=== PATIENT | female | born 2000 | race Caucasian/White ===

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

== ENCOUNTER 2021-03-21 18:15 | Emergency (ER) | payer OTHER, SELFPAY ==
[2021-03-21 18:22] VITALS: BP 103/61; PULSE 98; RESP 14; TEMP 36.4; O2SAT 100
--- NOTE | 2021-03-21 18:38 | ED.NAVMDI ---
HPI - Nausea/Vomiting/Diarrhea General Chief complaint: Nausea/Vomiting/Diarrhea Stated complaint: Vomiting/Dizzy/Pass Out Time Seen by Provider: 03/21/21 18:39 Source: patient and RN notes reviewed Mode of arrival: ambulatory Limitations: no limitations History of Present Illness HPI Narrative: 21-year-old female presents concern for episode of passing out this morning at work around 10 AM. Afterwards reports 2 episodes of vomiting several hours apart. Reports she checked her blood sugar after she passed out and it was 92. Reports for the rest of the day she has had a mild frontal headache and dizziness . She describes the dizziness as slight blurry vision. Denies any thunderclap headache, trouble swallowing, weakness in any extremity, abdominal pain, diarrhea, body aches, fever. Reports mild rhinorrhea. Denies sore throat, cough. MD elicited complaint: vomiting Related Data Home Medications Medication Instructions Recorded Confirmed cyclobenzaprine 5 mg PO HS 12/23/20 03/21/21 medroxyprogesterone 150 mg IM [id number] 12/23/20 03/21/21 Allergies Allergy/AdvReac Type Severity Reaction Status Date / Time No Known Allergies Allergy Verified 03/21/21 18:31 Review of Systems Review of Systems: CONSTITUTIONAL: Denies malaise, chills, sweats, or fever. EYES: Denies visual changes, redness, or discharge. ENT: Reports rhinorrhea. Denies congestion, sinus pain, otalgia or sore throat. CARDIOVASCULAR: Denies chest pain, palpitations, or edema. RESPIRATORY: Denies cough or dyspnea. GASTROINTESTINAL: Denies abdominal pain, nausea, diarrhea. There is reports 2 episodes of vomiting today. MUSCULOSKELETAL: Denies back pain, joint pain, or myalgia. NEUROLOGIC: Denies numbness, weakness. Reports mild headache. Reports feeling of dizziness All systems reviewed & are unremarkable except as noted in HPI and below PMFSH Family History Family History Other No acute medical problems Social History Social History (Updated 11/02/20 @ 17:18 by Tami Lima CNP) Smoking status: Never smoker Alcohol intake: never Gender identity (if verbalized by the patient): Female Comments At time of signature, agree with nursing past medical, surgical, social and family history. There is no relevant family history pertinent to the presenting complaint Exam Narrative: GENERAL: Well-appearing, well-nourished, and in no acute distress. HEAD: Normocephalic, atraumatic. EYES: PERRLA, sclera clear, and EOMI. No nystagmus. ENT: Nares clear. Mucous membranes moist. TM pearly levy with sharp light reflex bilaterally; no tragal tenderness. Oropharynx without erythema or lesions. Tonsils not enlarged and without exudate. NECK: Supple. No lymphadenopathy. No jugular venous distension, thyromegaly, or carotid bruits. Carotids were easily palpable bilaterally. CHEST: No respiratory distress. Clear to auscultation. No bony deformities, no asymmetry. Speaks in full sentences. HEART: Regular rate and rhythm. No murmur heard. Normal peripheral pulses. ABDOMEN: Soft, nontender, nondistended, normal active bowel sounds, no palpable masses. EXTREMITIES: Normal range of motion. No edema. Normal strength and sensation. SKIN: Warm, dry, no visible rash. NEURO: Alert and oriented x3. No focal deficits. Cranial nerves II through XII grossly intact PSYCH: Normal mood and affect Course Course Emergency Course: Patient is aware of diagnosis, understands and agrees to treatment plan. Anticipatory guidance given. Patient agrees to follow-up as directed and is aware of reasons to seek care at the emergency department. Portions of this record may have been created with voice recognition software Vital Signs Vital signs: Vital Signs Temperature 97.6 F 03/21/21 18:22 Pulse Rate 98 03/21/21 18:22 Respiratory Rate 14 03/21/21 18:22 Blood Pressure 103/61 03/21/21 18:22 Pulse Oximetry 100
== END 2021-03-21 19:09 | disposition home or self-care (01) ==
PROVIDERS: Emergency Provider Nurse Practitioner; PCP Nurse Practitioner Family
DX: R11.10 Vomiting, unspecified (principal); Z20.822 Contact with and (suspected) exposure to COVID-19
CPT/HCPCS: 87426; 99213; C9803; G0463

== ENCOUNTER 2021-04-30 11:48 | Emergency (ER) | payer OTHER, SELFPAY ==
[2021-04-30 12:45] VITALS: BP 116/71; PULSE 73; RESP 16; TEMP 36.9; O2SAT 100
--- NOTE | 2021-04-30 13:25 | ED.URI ---
HPI - URI/Sore Throat General Chief Complaint: Upper Respiratory Infection Stated Complaint: Sore Throat/Nausea Time Seen by Provider: 04/30/21 13:25 Source: patient, RN notes reviewed and old records reviewed Mode of arrival: ambulatory Limitations: no limitations History of Present Illness HPI Narrative: 21-year-old female presents to the [facility] with complaints of sore throat, headache, cough, body aches for the last 2 days. Denies any past medical or surgical history. Has only taken ibuprofen for her symptoms. Does not appear acutely ill MD elicited complaint: sore throat and nasal congestion Related Data Home Medications Medication Instructions Recorded Confirmed cyclobenzaprine 5 mg PO HS 12/23/20 03/21/21 medroxyprogesterone 150 mg IM [id number] 12/23/20 03/21/21 Allergies Allergy/AdvReac Type Severity Reaction Status Date / Time No Known Allergies Allergy Verified 03/21/21 18:31 Review of Systems Review of Systems: All systems reviewed & are unremarkable except as noted in HPI and below Constitutional: Constitutional: Reports as per HPI, Denies chills, Reports fatigue and Denies fever(s) Eyes: Eyes: Reports no additional eye complaints ENT: Reports as per HPI and Reports sore throat Cardiovascular: Cardiovascular: Reports no additional cardiovascular complaints and Denies chest pain Respiratory: Respiratory: Reports as per HPI and Reports cough Gastrointestinal: Gastrointestinal: Reports no additional gastrointestinal complaints, Denies abdominal pain, Denies nausea and Denies vomiting Musculoskeletal: Musculoskeletal: Reports as per HPI and Reports myalgias Integumentary/Breasts: Skin/Breast: Reports system reviewed and no additional complaints, except as docu Neurologic: Reports as per HPI and Reports headache(s) Psychiatric: Psychiatric: Reports no additional psychiatric complaints Allergic/Immunologic: Allergic/Immunologic: Reports no additional allergic/immunologic complaints [facility] Past Medical History Medical History (Updated 05/01/21 @ 00:00 by Charlotte Coulter) No pertinent past medical history Surgical History Surgical History (Updated 04/30/21 @ 13:35 by Deepika Yost) No pertinent past surgical history Family History Family History Other No acute medical problems Social History Social History (Updated 11/02/20 @ 17:18 by Tami Lima CNP) Smoking status: Never smoker Alcohol intake: never Gender identity (if verbalized by the patient): Female Comments At the time of my signature, I reviewed and agree with the nursing past medical, surgical, social, and family history. There is no relevant family history pertinent to the patient complaint. Exam Const: General: healthy appearing, no acute distress and alert Nutritional Appearance: well nourished Orientation/consciousness: patient oriented x3 Limitations: no limitations HENMT: Head: normal to inspection Ears: external ears normal, TM's normal bilaterally and EAC's normal Mouth: Yes Normal oral and palatal mucosa present Throat: posterior oropharynx normal, tonsils normal and uvula midline Eyes: Conjunctivae: conjunctivae normal Pupils: Equal, round and reactive pupils present Neck: Neck: normal visual inspection, no lymphadenopathy and no meningeal signs Chest: Chest palpation & inspection: normal inspection of the chest Resp: Effort & Inspection: normal respiratory effort and no use of accessory muscles Auscultation: clear to auscultation bilaterally, no rales and no wheezes Cardio: Rate: regular rate Rhythm: regular rhythm GI: GI Palp: Yes Soft to palpation and No Tenderness to palpation present (GI) Back/Spine/Pelvis: Back: no CVA tenderness Skin: General skin exam: normal color Rashes: no rashes Neuro: General: patient oriented x3, moves all extremities, no meningeal signs and no focal motor deficits Speech: normal speech
[2021-05-01 14:36] LABS: SARS-CoV-2 RNA PCR Positive
== END 2021-04-30 13:40 | disposition home or self-care (01) ==
PROVIDERS: Emergency Provider Nurse Practitioner; PCP Nurse Practitioner Family
DX: U07.1 COVID-19 (principal)
CPT/HCPCS: 99211; C9803; G0463; U0003; U0005

== ENCOUNTER 2021-12-06 14:45 | Emergency (ER) | payer OTHER, SELFPAY ==
[2021-12-06 14:48] VITALS: BP 120/48; PULSE 120; RESP 14; TEMP 36.8; O2SAT 100
--- NOTE | 2021-12-06 15:37 | ED.GENADULT ---
HPI - General Adult General Chief complaint: Ear Stated complaint: Right Ear Pain Source: patient Mode of arrival: ambulatory Limitations: no limitations History of Present Illness HPI narrative: Patient presents for evaluation of right ear pain for the last 2 weeks. She states that she has TMJ and thought that this caused an ear infection. She states she was seen at her PCP's office five days ago and was given a combo abx/steroid otic preparation which she has used as directed. She states her symptoms have not improved. She denies drainage from the ear and tinnitus. She states she cannot hear out of that ear. No additional complaints or concerns. Related Data Home Medications Medication Instructions Recorded Confirmed cyclobenzaprine 5 mg tablet 5 mg PO HS 12/23/20 12/06/21 Allergies Allergy/AdvReac Type Severity Reaction Status Date / Time No Known Allergies Allergy Verified 12/06/21 15:01 Review of Systems Review of Systems: CONSTITUTIONAL: Denies fever, chills, or sweats. EYES: Denies visual changes, redness, or discharge. ENT: Reports right sided ear pain and decreased hearing in right ear. Denies rhinorrhea, congestion, sore throat CARDIOVASCULAR: Denies chest pain, palpitations, or edema. RESPIRATORY: Denies cough or dyspnea. GASTROINTESTINAL: Denies abdominal pain, nausea, vomiting, or diarrhea. GENITOURINARY: Denies dysuria or hematuria. SKIN: Denies rash or itching. MUSCULOSKELETAL: Denies back pain, joint pain, or myalgia. NEUROLOGIC: Denies headache, numbness, dizziness, or weakness. PSYCHIATRIC: Denies anxiety or depression. [facility] Past Medical History Medical History (Updated 12/06/21 @ 15:42 by JEANNETTE Tejeda, ) TMJ (temporomandibular joint syndrome) Surgical History Surgical History No pertinent past surgical history Family History Family History Other No acute medical problems Social History Social History Smoking status: Current every day smoker Tobacco type: e-cigarettes/vaping Alcohol intake: never Substance use: current Substance use type: marijuana Additional living arrangements comments: Lives with significant other Gender identity (if verbalized by the patient): Female Exam Narrative: GENERAL: Well-appearing, well-nourished, and in no acute distress. HEAD: Normocephalic, atraumatic. EYES: PERRLA and EOMI. ENT: Nares clear, no rhinorrhea or epistaxis. Mucous membranes moist. Oropharynx without tonsillar hypertrophy exudate or other lesions. There is a small amount of thick yellow drainage in right ear canal. There is a thick yellow drainage behind right TM NECK: Supple. No adenopathy or masses. No carotid bruits or JVD CHEST: Clear to auscultation. No respiratory distress. No wheezes rales or rhonchi HEART: Regular rate and rhythm. No murmur heard. Normal peripheral pulses. ABDOMEN: Soft, nontender, nondistended, normal active bowel sounds. EXTREMITIES: Normal range of motion. No edema. SKIN: Warm, dry, no rash. NEURO: No focal deficits. Alert and oriented x3. PSYCH: Normal mood and affect. Course Course Emergency Course: This is a 21-year-old female that presented for evaluation of right-sided ear pain. She was recently treated for otitis externa. She currently has evidence of otitis media. We will add Augmentin. Follow-up outpatient for further evaluation and treatment. Return for worsening symptoms. Pt in agreement with plan of care. Level of Care: Express Care Visit Vital Signs Vital signs: Vital Signs Temperature 36.8 C 12/06/21 14:48 Pulse Rate 120 H 12/06/21 14:48 Respiratory Rate 14 12/06/21 14:48 Blood Pressure 120/48 L 12/06/21 14:48 Pulse Oximetry 100 12/06/21 14:48 Oxygen Delivery Room Air 12/06/21 14:48 Temperature 36
== END 2021-12-06 15:40 | disposition home or self-care (01) ==
PROVIDERS: Emergency Provider Nurse Practitioner; PCP Nurse Practitioner Family
DX: H66.91 Otitis media, unspecified, right ear (principal); F17.290 Nicotine dependence, other tobacco product, uncomplicated
CPT/HCPCS: 99213; G0463

== ENCOUNTER 2021-12-19 10:14 | Emergency (ER) | payer OTHER, SELFPAY ==
[2021-12-19 10:25] VITALS: BP 114/71; PULSE 112; RESP 20; TEMP 36.8; O2SAT 100
--- NOTE | 2021-12-19 10:34 | ED.URI ---
HPI - URI/Sore Throat General Chief Complaint: Upper Respiratory Infection Stated Complaint: Chest Congestion/Cough Time Seen by Provider: 12/19/21 10:34 Source: patient, RN notes reviewed and old records reviewed Mode of arrival: ambulatory Limitations: no limitations History of Present Illness HPI Narrative: 21-year-old female presents to the [facility] with cough for 1 day. States when she is coughing that her chest is sore. Was seen 2 weeks ago and diagnosed with a right ear infection, states that her ear still feels full. No treatment prior to arrival. Reports that her son was sick 2 days ago. Patient also requesting a work note Related Data Home Medications Medication Instructions Recorded Confirmed cyclobenzaprine 5 mg tablet 5 mg PO HS 12/23/20 12/06/21 Allergies Allergy/AdvReac Type Severity Reaction Status Date / Time No Known Allergies Allergy Verified 12/06/21 15:01 Review of Systems Review of Systems: All systems reviewed & are unremarkable except as noted in HPI and below Constitutional: Constitutional: Reports no additional constitutional complaints, Denies chills and Denies fever(s) Eyes: Eyes: Reports no additional eye complaints ENT: Reports as per HPI Cardiovascular: Cardiovascular: Reports no additional cardiovascular complaints Respiratory: Respiratory: Reports as per HPI, Reports chest congestion and Reports cough Gastrointestinal: Gastrointestinal: Reports no additional gastrointestinal complaints Musculoskeletal: Musculoskeletal: Reports no additional musculoskeletal complaints Integumentary/Breasts: Skin/Breast: Reports system reviewed and no additional complaints, except as docu Neurologic: Reports system reviewed and no additional complaints, except as documented Psychiatric: Psychiatric: Reports no additional psychiatric complaints Allergic/Immunologic: Allergic/Immunologic: Reports no additional allergic/immunologic complaints [facility] Past Medical History Medical History TMJ (temporomandibular joint syndrome) Surgical History Surgical History No pertinent past surgical history Family History Family History Other No acute medical problems Social History Social History Smoking status: Current every day smoker Tobacco type: e-cigarettes/vaping Alcohol intake: never Substance use: current Substance use type: marijuana Additional living arrangements comments: Lives with significant other Gender identity (if verbalized by the patient): Female Comments At the time of my signature, I reviewed and agree with the nursing past medical, surgical, social, and family history. There is no relevant family history pertinent to the patient complaint. Exam Const: General: healthy appearing, no acute distress and alert Nutritional Appearance: well nourished Orientation/consciousness: patient oriented x3 Limitations: no limitations HENMT: Head: normal to inspection Ears: external ears normal, EAC's normal and TM abnormal with fluid behind the TM on the right; not on the left; not erythematous, not perforated and not retracted General nose exam: Normal external nose present and Normal nares present Face and sinus: normal facial exam Throat: posterior oropharynx normal and uvula midline Eyes: General: appearance normal, both eyes and all related structures Pupils: Equal, round and reactive pupils present Neck: Neck: normal visual inspection, no lymphadenopathy and no meningeal signs Chest: Chest palpation & inspection: normal inspection of the chest and tenderness (Right intercostal spaces) Resp: Effort & Inspection: normal respiratory effort and no use of accessory muscles Auscultation: clear to auscultation bilaterally, no crackles, no rales,
== END 2021-12-19 11:10 | disposition home or self-care (01) ==
PROVIDERS: Emergency Provider Nurse Practitioner; PCP Nurse Practitioner Family
DX: M94.0 Chondrocostal junction syndrome [Tietze] (principal); H65.01 Acute serous otitis media, right ear; F17.290 Nicotine dependence, other tobacco product, uncomplicated
CPT/HCPCS: 99213; G0463

== ENCOUNTER 2022-03-24 11:23 | Emergency (ER) | payer OTHER, SELFPAY ==
[2022-03-24 12:36] VITALS: BP 108/71; PULSE 95; RESP 16; TEMP 36.6; O2SAT 100
--- NOTE | 2022-03-24 13:53 | ED.URI ---
HPI - URI/Sore Throat General Chief Complaint: Nausea/Vomiting/Diarrhea Stated Complaint: Low Back Pain/Vomiging Time Seen by Provider: 03/24/22 13:50 Source: patient and RN notes reviewed Mode of arrival: ambulatory Limitations: no limitations History of Present Illness HPI Narrative: 22-year-old female presents for multiple complaints. Reports 2 day history of cough, back pain, chills, sweats, general malaise. Reports she did not have any direct trauma to her back. She denies sick contacts. She denies dysuria, frequency, urgency. MD elicited complaint: cough and other (Chills, sweats, flank pain) Related Data Home Medications Medication Instructions Recorded Confirmed cyclobenzaprine 5 mg tablet 5 mg PO HS 12/23/20 12/06/21 Allergies Allergy/AdvReac Type Severity Reaction Status Date / Time No Known Allergies Allergy Verified 12/06/21 15:01 Review of Systems Review of Systems: CONSTITUTIONAL: Reports malaise, chills, sweats EYES: Denies visual changes, redness, or discharge. ENT: Reports rhinorrhea, congestion. Denies sinus pain, otalgia and sore throat. CARDIOVASCULAR: Denies chest pain, palpitations, or edema. RESPIRATORY: Reports cough. Denies dyspnea. GASTROINTESTINAL: Denies abdominal pain, nausea, vomiting, diarrhea SKIN: Denies rash or itching. MUSCULOSKELETAL: Reports myalgia. Reports bilateral back pain NEUROLOGIC: Denies headache. All systems reviewed & are unremarkable except as noted in HPI and below PMFSH Past Medical History Medical History TMJ (temporomandibular joint syndrome) Surgical History Surgical History No pertinent past surgical history Family History Family History Other No acute medical problems Social History Social History Smoking status: Current every day smoker Tobacco type: e-cigarettes/vaping Alcohol intake: never Substance use: current Substance use type: marijuana Additional living arrangements comments: Lives with significant other Gender identity (if verbalized by the patient): Female Comments At time of signature, agree with nursing past medical, surgical, social and family history. There is no relevant family history pertinent to the presenting complaint Exam Narrative: GENERAL: Well-appearing, well-nourished, and in no acute distress. HEAD: Normocephalic EYES: PERRLA, conjunctivae clear ENT: Nares clear, clear discharge. Mucous membranes moist. TM pearly levy with sharp light reflex bilaterally; no tragal tenderness. Oropharynx not erythematous without lesions. Tonsils not enlarged and without exudate, no drooling, no hoarseness, no trismus, uvula midline. NECK: Supple. No lymphadenopathy CHEST: Clear to auscultation, breath sounds equal. No wheezing, rhonchi, rales, or stridor. No respiratory distress, speaks in full sentences. HEART: Regular rate and rhythm. No murmur heard. ABD: Bowel sounds active in all 4 quadrants, no tenderness. CVA tenderness bilaterally SKIN: Warm, dry, no rash. NEURO: Alert and oriented x3. PSYCH: Normal mood and affect Course Course Emergency Course: Patient is aware of diagnosis, understands and agrees to treatment plan. Anticipatory guidance given. Patient agrees to follow-up as directed and is aware of reasons to seek care at the emergency department. Portions of this record may have been created with voice recognition software Level of Care: Express Care Visit Vital Signs Vital signs: Vital Signs Temperature 97.9 F 03/24/22 12:36 Pulse Rate 95 03/24/22 12:36 Respiratory Rate 16 03/24/22 12:36 Blood Pressure 108/71 03/24/22 12:36 Pulse Oximetry 100 03/24/22 12:36 Oxygen Delivery Room Air 03/24/22 12:36 Temperature 97.9 F 03/24/22 12:36 Pulse Rate 95
== END 2022-03-24 14:41 | disposition home or self-care (01) ==
PROVIDERS: Emergency Provider Nurse Practitioner; PCP Nurse Practitioner Family
DX: J11.1 Influenza due to unidentified influenza virus with other respiratory manifestations (principal); F17.290 Nicotine dependence, other tobacco product, uncomplicated
CPT/HCPCS: 81003; 87086; 87088; 87147; 99213; G0463

== ENCOUNTER 2022-12-07 10:45 | Emergency (ER) | payer BC, SELFPAY ==
[2022-12-07 10:54] VITALS: BP 113/71; PULSE 105; RESP 20; TEMP 36.8; O2SAT 100
--- NOTE | 2022-12-07 11:13 | ED.ABDPAIN ---
HPI - Abdominal Pain General Chief Complaint: Abdominal Pain Stated Complaint: Ovary pain History of Present Illness HPI narrative: Pt is a 22 y/o female, , 4 year old at home, presents to with bilateral suprapubic pressure that began two days ago. Today she notices some pressure when she urinates as well in the bilateral suprapubic region. She denies associated pelvic pain, dyspareunia or post coital bleeding. 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 She has not had a BM since taking the medication. She denies associated fevers, reports clear vaginal discharge that is not malodorous or abnormal in appearance and she denies new sexual partners or STI concerns. She did stop her OCP last month after feeling the medication was causing her to have abnormal menstrual periods. she called her OBGYN today but was unable to obtain an appointment, prompting her visit here. She has taken APAP and applied a heating pad without much relief. She denies any other associated symptoms or modifying factors. Related Data Home Medications Medication Instructions Recorded Confirmed cyclobenzaprine 5 mg tablet 5 mg PO HS 12/23/20 12/06/21 Allergies Allergy/AdvReac Type Severity Reaction Status Date / Time No Known Allergies Allergy Verified 12/06/21 15:01 Review of Systems Constitutional: Comments: refer to HPI Gastrointestinal: Comments: refer to HPI Genitourinary: Comments: refer to HPI [facility] Past Medical History Medical History TMJ (temporomandibular joint syndrome) Surgical History Surgical History No pertinent past surgical history Family History Family History Other No acute medical problems Social History Social History Smoking status: Current every day smoker Tobacco type: e-cigarettes/vaping Alcohol intake: never Substance use: current Substance use type: marijuana Additional living arrangements comments: Lives with significant other Gender identity (if verbalized by the patient): Female Exam Const: General: cooperative, healthy appearing, comfortable, no acute distress, well developed, alert, awake and Physically active Nutritional Appearance: average body habitus Orientation/consciousness: oriented to person Limitations: no limitations HENMT: Head: normal to inspection Ears: hearing grossly normal bilaterally Mouth: Yes Normal oral and palatal mucosa present Throat: posterior oropharynx normal Eyes: General: appearance normal, both eyes and all related structures Visual Layne: normal visual layne by confrontation Conjunctivae: conjunctivae normal Sclera: sclerae normal EOM: EOMs intact bilaterally Neck: Neck: normal visual inspection, full ROM, no lymphadenopathy and no meningeal signs Lymphatic: no lymphadenopathy noted Chest: Chest palpation & inspection: normal inspection of the chest Resp: Effort & Inspection: normal respiratory effort and able to speak in complete sentences Auscultation: clear to auscultation bilaterally Cardio: Palpation: normal PMI Rate: regular rate (rate is 98 at PMI) Rhythm: regular rhythm Heart sounds: S1 normal heart sound present and S2 normal heart sound present GI: Inspection: normal to inspection GI Palp: No abdominal tenderness, No Abdominal aortic bruit present, No Soft to palpation, No Firmness to palpation present (GI), No Tenderness to palpation present (GI), No Guarding due to palpation present (GI), No Rigid due to palpation, No No hepatosplenomegaly present, No Hepatosplenomegaly present, No Hep
== END 2022-12-07 11:31 | disposition home or self-care (01) ==
PROVIDERS: Emergency Provider Nurse Practitioner Family; PCP Nurse Practitioner Family
DX: R10.2 Pelvic and perineal pain (principal); K59.09 Other constipation; F17.290 Nicotine dependence, other tobacco product, uncomplicated
CPT/HCPCS: 81003; 81025; 99212; G0463

== ENCOUNTER 2023-01-31 10:00 | Emergency (ER) | payer BC, MEDICAID, SELFPAY ==
[2023-01-31 10:19] VITALS: BP 123/69; PULSE 106; RESP 20; TEMP 36.6; O2SAT 97
--- NOTE | 2023-01-31 10:41 | ED.GENADULT ---
HPI - General Adult General Chief complaint: Skin/Abscess/Foreign Body Stated complaint: left hand middle finger infection Source: patient Mode of arrival: ambulatory Limitations: no limitations History of Present Illness HPI narrative: Patient presents for evaluation of redness to the skin surrounding the nail plate of the 3rd digit of the left hand. Symptom onset one week ago. She has a history of paronychia in the past. She is not diabetic. She does use electronic cigarette. No fever, chills, nausea, vomiting, drainage from the affected digit. She is currently , 9 weeks gestation, with confirmed IUP per ultrasound during this . Related Data Home Medications Medication Instructions Recorded Confirmed Women's Stool Softener 01/31/23 ondansetron 4 mg disintegrating mg 01/31/23 tablet [id number] 1 mg tablet PO 01/31/23 tablet Allergies Allergy/AdvReac Type Severity Reaction Status Date / Time No Known Allergies Allergy Verified 01/31/23 10:17 Review of Systems Review of Systems: CONSTITUTIONAL: Denies fever, chills, or sweats. EYES: Denies visual changes, redness, or discharge. ENT: Denies rhinorrhea, congestion, sore throat, or otalgia. CARDIOVASCULAR: Denies chest pain, palpitations, or edema. RESPIRATORY: Denies cough or dyspnea. GASTROINTESTINAL: Denies abdominal pain, nausea, vomiting, or diarrhea. GENITOURINARY: Denies dysuria or hematuria. SKIN: Reports redness to skin surrounding nailplate of third digit of left hand MUSCULOSKELETAL: Reports pain in the 3rd digit of the left hand. Denies back pain NEUROLOGIC: Denies headache, numbness, dizziness, or weakness. PSYCHIATRIC: Denies anxiety or depression. [facility] Past Medical History Medical History TMJ (temporomandibular joint syndrome) Surgical History Surgical History No pertinent past surgical history Family History Family History Other No acute medical problems Social History Social History Smoking status: Current every day smoker Tobacco type: e-cigarettes/vaping Alcohol intake: never Substance use: current Substance use type: marijuana Additional living arrangements comments: Lives with significant other Gender identity (if verbalized by the patient): Female Exam Narrative: GENERAL: Well-appearing, well-nourished, and in no acute distress. HEAD: Normocephalic, atraumatic. EYES: PERRLA and EOMI. ENT: Nares clear, no rhinorrhea or epistaxis. Mucous membranes moist. Oropharynx without tonsillar hypertrophy exudate or other lesions. Bilateral TMs pearly levy nonbulging NECK: Supple. No adenopathy or masses. No carotid bruits or JVD CHEST: Clear to auscultation. No respiratory distress. No wheezes rales or rhonchi HEART: Regular rate and rhythm. No murmur heard. Normal peripheral pulses. ABDOMEN: Soft, nontender, nondistended, normal active bowel sounds. EXTREMITIES: Trace swelling noted to the distal phalanx of the 3rd digit of the left hand surrounding the nail plate. There is tenderness to the distal phalanx of 3rd digit left hand. normal range of motion. SKIN: There is redness surrounding the nail plate of the 3rd digit of the left hand. NEURO: No focal deficits. Alert and oriented x3. PSYCH: Normal mood and affect. Course Course Emergency Course: This is a 23-year-old female who presented for evaluation of redness and swelling to the skin surrounding the nail plate of the 3rd digit left hand. Exam is consistent with paronychia. There does not appear to be drainable fluid collection on exam. In terms of clinical management, I recommended she use warm soaks. Will avoid antibiotics as she is currently and majority of anti
== END 2023-01-31 10:43 | disposition home or self-care (01) ==
PROVIDERS: Emergency Provider Nurse Practitioner; PCP Nurse Practitioner Family
DX: O26.891 Other specified pregnancy related conditions, first trimester (principal); L03.012 Cellulitis of left finger; O99.331 Smoking (tobacco) complicating pregnancy, first trimester; F17.219 Nicotine dependence, cigarettes, with unspecified nicotine-induced disorders; Z3A.09 9 weeks gestation of pregnancy; Z79.899 Other long term (current) drug therapy
CPT/HCPCS: 99211; G0463

== ENCOUNTER 2024-12-22 19:19 | Emergency (ER) | payer OTHER, SELFPAY ==
[2024-12-22 19:23] VITALS: BP 134/78; PULSE 83; RESP 16; TEMP 36.6; O2SAT 100
--- OUTSIDE RECORDS SUMMARY | 2024-12-22 19:23 | XMS_ITS | Encounter Summary ---
Author Organization [facility] Healthcare Address [address] [place] [address] Care Team Providers Care Ton Container Shipper Name Role Phone Cathie Bo CREDIT RELATIONSHIP MANAGER Primary Care Provider [phone] No, Physician Primary Care Provider [phone] Cathie Bo CREDIT RELATIONSHIP MANAGER Primary Care Provider [phone] No, Physician Primary Care Provider [phone] No, Physician Primary Care Provider [phone] Tami Saha CREDIT RELATIONSHIP MANAGER Primary Care Provider [phone] Encounter Details Date Type Department Care Team (Late st Contact Info) Description 06/04/2017 [facility] Only [facility] [address] [place] [phone] Jing Barnhart, ROHAN [address] [place] [phone] Social History Tobacco Use Types Packs/Day Years Used Date Smoking Tobacco: Never Smokeless Tobacco: Never Comments Unknown Sex and Gender Information Value Date Recorded Sex Assigned at Not on file Legal Sex Female 10:39 AM TOUR CONSULTANT Gender Identity Female 03/12/2024 8:00 AM TOUR CONSULTANT Sexual Orientation Asexual 03/12/2024 8: 00 AM TOUR CONSULTANT documented as of this encounter Plan of Treatment Upcoming Encounters Date Type Department Care Team (Latest Contact Info) Description 02/09/2025 10:55 AM CDT Hospital Encounter [facility] [place] [facility] [address] [facility] [place] [phone] Trell Carrera MD [address] [facility] DEPT OTOLARYNGOLOGY, [address] [address] 02/09/2025 10:55 AM CDT - 02/09/2025 12:25 PM CDT Surgery [facility] [place] [facility] [address] [facility] [place] [phone] Trell Carrera MD [address], [facility] [address] [place] [address] TYMPANOPLASTY WITH RECONSTRUCTION OSSICULAR CHAIN. Scheduled Procedures Name Priority Associated Diagnoses Date/Ti me TYMPANOPLASTY WITH RECONSTRUCTION OSSICULAR CHAIN. Conductive hearing loss of right ear with unrestricted hearing of left ear 02/09/2025 10:55 AM CDT documented as of this encounter Visit Diagnoses Not on filedocumented in this encounter Care Teams Ton Container Shipper Relationship Specialty Start Date End Date Cathie Bo NP PCP - General 08/04/16 03/19/19 No, Physician PCP - General 03/20/19 08/29/19 Cathie Bo NP PCP - General Family Medicine 08/30/19 09/07/19 No, Physician PCP - General 09/08/19 10/29/19 No, Physician PCP - General 10/30/19 04/02/21 Tami Saha NP [address] [place] [address] PCP - General 04/03/21 documented as of this encounter
--- OUTSIDE RECORDS SUMMARY | 2024-12-22 19:23 | XMS_ITS | Clinical Summary ---
Author Organization [facility] [employer] Address [address] [address] Care Team Providers Care Database Security Administrator Name Role Phone Unavailable Primary Care Provider Unavailabl e Source Comments [facility] [employer]non-owned Affiliates and Associated Physician Practices is amultiple site organization consisting of ambulatory clinics and hospital sitesin [place], [place], [place] and [place]. This disclosure is being madepursuant to the Care Everywhere program and may not contain all information available regarding this patient. Last updated 18.[facility] [employer] Active Problems Problem Noted Date Diagnosed Date Poor growth affecting management of mother, antepartum 08/01/2019 Rh negative state in antepartum period 0 Social History Tobacco Use Types Packs/Day Years Used Date Smoking Tobacco: Never Assessed Comments No Sex and Gender Information Value Date Recorded Sex Assigned at Not on file Legal Sex Female 11:13 AM CDT Gender Identity Not on file Sexual Orientation Not on file Last Filed Vital Signs Vital Sign Reading Time Taken Comments Blood Pressure - - Pulse - - Temperature 36.6 C (97.9 F) 08/04/2019 8:17 AM CDT Respiratory Rate - - Oxygen Saturation - - Inhaled Oxygen Concentration - - Weight - - Height - - Body Mass Index - - Plan of Treatment Health Maintenance Due Date Last Done Comments HIV SCREENING 01/08/2016 HPV VACCINE (1 - 3-dose series) 01/08/2016 CHLAMYDIA/GONORRHEA SCREENING 2017 MENINGOCOCCAL (Group B) VACCINE SHARED DECISION-MAKING (1 of 2 - Standard) 2017 HEPATITIS C SCREENING 01/03/2019 DTAP/TDAP/TD VACCINES (1 - Tdap) 01/08/2020 HEPATITIS B VACCINE (1 of 3 - 19+ 3-dose series) 01/08/2020 PAP SMEAR 2022 COVID-19 VACCINE ( season) 2023 DEPRESSION SCREENING 04/26/2024 INFLUENZA VACCINE (#1) 2024 9, 01/23/2014, 02/01/2013, Additional history exists ZOSTER VACCINE (1 of 2) 2051 HIB VACCINE Aged Out No longer eligi ble based on patient's age to complete this topic MENINGOCOCCAL GROUPS A/C/Y/W VACCINE Aged Out No longer eligible based on patient's age to complete this topic PNEUMOCOCCAL VACCINE Aged Out No long er eligible based on patient's age to complete this topic Insurance [facility]
--- OUTSIDE RECORDS SUMMARY | 2024-12-22 19:23 | XMS_ITS | Encounter Summary ---
Author Organization [facility] Address [address] [place] [address] Phone Care Team Providers Care Direct Marketing Intern Name Role Phone Tami Saha NP Primary Care Provider [phone] Encounter Details Date Type Department Care Team (Late st Contact Info) Description 12/22/2024 Orders Only [facility] Otolaryngology [address], [address] [place] [address] Inna Herrera CMA Social History Tobacco Use Types Packs/Day Years Used Date Smoking Tobacco: Every Day Vaping Started: 2015 Smokeless Tobacco: Never Comments:Pt currently vaping nicotine with flavoring and quit vaping THC on 07/26/2024 Alcohol Use Standard Drinks/Week Comments Not Currently 0 (1 standard drink = 0.6 oz pur e alcohol) [facility] Utilities Answer Date Recorded In the past 12 months has e electric, gas, oil, or water [employer] threatened to shut off services in your home? No 08/26/2023 Humiliation, Afraid, Rape, and Kick questionnair e Answer Date Recorded Within the last year, have y ou been afraid of your partner or ex-partner? No 08/26/2023 Within the last year, have y ou been humiliated or emotionally abused in other ways by your partner or ex-partner? No Within the last year, have y ou been kicked, hit, slapped, or otherwise physically hurt by your partner or ex-partner? No 08/26/2023 Within the last year, have y ou been raped or forced to have any kind of sexual activity by your partner or ex-partner? No 08/26/2023 Social Connection and Isolation Panel Answer Date Recorded In a typical week, how many times do you talk on the phone with family, friends, or neighbors? More than three times a week 08/26/2023 How often do you get togethe r with friends or relatives? More than three times a week 08/26/2023 How often do you attend chur or restorationism services? Never 08/26/2023 Do you belong to any clubs o r organizations such as jehovah's witness groups, unions, fraternal or athletic groups, or school groups? No 08/26/2023 How often do you attend meet ings of the clubs or organizations you belong to? Never 08/26/2023 Are you , , di vorced, , never , or living with a partner? Living with partner 08/26/2023 AUDIT-C Answer Date Recorded Q1: How often do you have a drink containing alcohol? Never 08/11/2024 Q2: How many drinks containi ng alcohol do you have on a typical day when you are drinking? Patient does not drink Q3: How often do you have si x or more drinks on one occasion? Never 08/11/2024 Overall Financial Resource Strain (CARDIA) Answe r Date Recorded How hard is it for you to pa y for the very basics like food, housing, medical care, and heating? Not hard at all 08/26/2023 PHQ-2 Answer Date Recorded PHQ-2 Total Score 0 08/26/2023 [facility] - Occupational Stress Questionnaire Answer Date Recorded Do you feel stress - tense, restless, nervous, or anxious, or unable to sleep at night because your mind is troubled all the time - these days? Not at all 08/26/2023 Exercise Vital Sign Answer Date Recorde d On average, how many days pe r week do you engage in moderate to strenuous exercise (like a brisk walk)? 7 days 08/26/2023 On average, how many minutes do you engage in exercise at this level? 30 min 08/26/2023 Hunger Vital Sign Answer Date Recorded Within the past 12 months, y ou worried that your food would run out before you got the money to buy more. Never true 08/26/19 24 Within the past 12 months, t he food you bought just didn't last and you didn't have money to get more. Never true 08/26/2023 PRAPARE - Transportation Answer Date Re corded In the past 12 months, has l ack of transportation kept you from medical appointments or from getting medications? No 05/2023 In the past 12 months, has l ack of transportation kept you from meetings, work, or from getting things needed for daily living? No 08/26/2023 Housing Stability Vital Sign Answer Jarred e Recorded In the last 12 months, was t here a time when you were not able to pay the mortgage or rent on time? No 08/26/2023 In the last 12 months, how many places have you lived? 1 08/26/2023 In the last 12 months, was t here a time when you did not have a steady place to sleep or slept in a senior care (including now)? No 08/26/2023 Minetto Depression Scale Answer Date Recorded Minetto Depression Scale Total 12 12/15/2023 The thought of harming myself has occurred to me . Never 12/15/2023 PHQ-9 Answer Date Recorded PHQ-9 Total Score 0 08/24/2023 Personal Safety Answer Date Recorded Have you ever been in or are you currently in a harmful physical or emotional relationship or is someone making you feel afraid or unsafe? Denies 08/11/2024 Comments No Sex and Gender Information Value Date Recorded Sex Assigned at Not on file Legal Sex Female 10:39 AM FORECLOSURE HOME INSPECTOR Gender Identity Female 03/12/2024 8:00 AM FORECLOSURE HOME INSPECTOR Sexual Orientation Asexual 03/12/2024 8: 00 AM FORECLOSURE HOME INSPECTOR documented as of this encounter Ordered Prescriptions Prescription Sig Dispense Quantity Refills Last Filled Start Date End Date ofloxacin (FLOXIN) 0.3 % otic solution Administer 5 drops into the right ear daily Start 1 week after surgery and continue until 1st follow up 10 mL 3 12/22/2024 documented in this encounter Plan of Treatment Upcoming Encounters Date Type Department Care Team (Latest Contact Info) Description 02/09/2025 10:55 AM CDT Hospital Encounter [facility] Operating Room [address] [phone] Trell Carrera MD [address] [facility] DE[facility] OT[facility], [address] [address] 02/09/2025 10:55 AM CDT - 02/09/2025 12:25 PM CDT Surgery [facility] [address] [facility] [phone] Trell Carrera MD [address] DEPT OTOLARYNGOLOGY, [address] [address] TYMPANOPLASTY WITH RECONSTRUCTION OSSICULAR CHAIN. Scheduled Procedures Name Priority Associated Diagnoses Date/Ti me TYMPANOPLASTY WITH RECONSTRUCTION OSSICULAR CHAIN. Conductive hearing loss of right ear with unrestricted hearing of left ear 02/09/2025 10:55 AM CDT documented as of this encounter Visit Diagnoses Not on filedocumented in this encounter Discontinued Medications Medication Sig Discontinue Reason Start Date End Da te ofloxacin (FLOXIN) 0.3 % otic solution Administer 5 drops into the right ear daily Start 1 week after surgery and continue until 1st follow up Reorder 08/28/2024 12/22/2024 documented as of this encounter Care Teams Direct Marketing Intern Relationship Specialty Start Date End Date Tami Saha NP [address] [place] [address] PCP - General 04/03/21 documented as of this encounter
--- OUTSIDE RECORDS SUMMARY | 2024-12-22 19:23 | XMS_ITS | Encounter Summary ---
Author Organization [facility] Address [address] [place] [address] Phone Care Team Providers Care Utilities Estimator And Drafter Name Role Phone Tami Saha NP Primary Care Provider [phone] Encounter Details Date Type Department Care Team (Late st Contact Info) Description 12/22/2024 Orders Only [facility] Otolaryngology [address], [address] [place] [address] Inna Herrera CMA Social History Tobacco Use Types Packs/Day Years Used Date Smoking Tobacco: Every Day Vaping Started: 2015 Smokeless Tobacco: Never Comments:Pt currently vaping nicotine with flavoring and quit vaping THC on 07/26/2024 Alcohol Use Standard Drinks/Week Comments Not Currently 0 (1 standard drink = 0.6 oz pur e alcohol) [facility] Utilities Answer Date Recorded In the past 12 months has e electric, gas, oil, or water [employer] threatened to shut off services in your [...] How often do you attend chur or restorationist services? Never 08/26/2023 Do you belong to any clubs o r organizations such as yarsani groups, unions, fraternal or athletic groups, or [...] Date Recorded PHQ-2 Total Score 0 08/26/2023 [facility] - Occupational Stress [...] place to sleep or slept in a fci (including now)? No 08/26/2023 Lookout Depression Scale Answer Date Recorded Lookout Depression Scale Total 12 12/15/2023 The thought [...] on file Legal Sex Female 10:39 AM RIBBON BLOCKMAKER Gender Identity Female 03/12/2024 8:00 AM RIBBON BLOCKMAKER Sexual Orientation Asexual 03/12/2024 8: 00 AM RIBBON BLOCKMAKER documented as of this encounter Plan of Treatment Upcoming Encounters Date Type Department Care Team (Latest Contact Info) Description 02/09/2025 10:55 AM CDT Hospital Encounter [facility] Operating Room [address] [place] [phone] Trell Carrera MD [address] [facility] [address] DEPT OTOLARYNGOLOGY, [facility] [address] [place] [address] 02/09/2025 10:55 AM CDT - 02/09/2025 12:25 PM CDT Surgery [facility] Operating Room [address] [facility] [place] [phone] Trell Carrera MD [address] DEPT OTOLARYNGOLOGY, [facility] [address] [place] [address] TYMPANOPLASTY WITH RECONSTRUCTION OSSICULAR CHAIN. Scheduled Procedures Name Priority Associated Diagnoses Date/Ti me TYMPANOPLASTY WITH RECONSTRUCTION OSSICULAR CHAIN. Conductive hearing loss of right ear with unrestricted hearing of left ear 02/09/2025 10:55 AM CDT documented as of this encounter Visit Diagnoses Not on filedocumented in this encounter Care Teams Utilities Estimator And Drafter Relationship Specialty Start Date End Date Tami Saha NP [address] [place] [address] PCP - General 04/03/21 documented as of this encounter
--- OUTSIDE RECORDS SUMMARY | 2024-12-22 19:23 | XMS_ITS | Encounter Summary ---
Author Organization [facility] Address [address] [place] [address] Phone Care Team Providers Care Gill Box Operator Name Role Phone Cathie Bo GROUNDSKEEPER SUPERVISOR Primary Care Provider [phone] No, Physician Primary Care Provider [phone] Cathie Bo GROUNDSKEEPER SUPERVISOR Primary Care Provider [phone] No, Physician Primary Care Provider [phone] Mamta, Physician Primary Care Provider Tami Saha GROUNDSKEEPER SUPERVISOR Primary Care Provider Encounter Details Date Type Department Care Team (Late st Contact Info) Description 06/04/2017 Orders Only [facility] ProviderChapo MD [address] [place] [address] Social History Tobacco Use Types Packs/Day Years Used Date Smoking Tobacco: Never Smokeless Tobacco: Never Comments Unknown Sex and Gender Information Value Date Recorded Sex Assigned at Not on file Legal Sex Female 10:39 AM FOUR ROLL CALENDER OPERATOR Gender Identity Female 03/12/2024 8:00 AM FOUR ROLL CALENDER OPERATOR Sexual Orientation Asexual 03/12/2024 8: 00 AM FOUR ROLL CALENDER OPERATOR documented as of this encounter Plan of Treatment Upcoming Encounters Date Type Department Care Team (Latest Contact Info) Description 02/09/2025 10:55 AM CDT Hospital Encounter [facility] Operating Room [address] [place] [phone] Trell Carrera MD [address] DE[address] OTOLARY[address]OLOGY, [facility] [address] [place] [address] 02/09/2025 10:55 AM CDT - 02/09/2025 12:25 PM CDT Surgery [facility] Operating Room [address] [place] [phone] Trell Carrera MD [address] DE[address] OTOLARYNGOLOGY, [facility] [address] [place] [address] TYMPANOPLASTY WITH RECONSTRUCTION OSSICULAR CHAIN. Scheduled Procedures Name Priority Associated Diagnoses Date/Ti me TYMPANOPLASTY WITH RECONSTRUCTION OSSICULAR CHAIN. Conductive hearing loss of right ear with unrestricted hearing of left ear 02/09/2025 10:55 AM CDT documented as of this encounter Procedures Procedure Name Priority Date/Time Associated Diagnosis Comments DISCHARGE LABORATORY CUMULATIVE REPORT 06/04/2017 12:00 AM FOUR ROLL CALENDER OPERATOR documented in this encounter Results * DISCHARGE LABORATORY CUMULATIVE REPORT (06/04/2017 12:00 AM FOUR ROLL CALENDER OPERATOR) Narrative 06/04/2017 12:00 AM FOUR ROLL CALENDER OPERATOR Ordered by an unspecified provider. us Historical Provider LAB BLOOD ORDERABLES Marcela l Result documented in this encounter Visit Diagnoses Not on filedocumented in this encounter Care Teams Gill Box Operator Relationship Specialty Start Date End Date Cathie Bo NP PCP - General 08/04/16 03/19/19 No, Physician PCP - General 03/20/19 08/29/19 Cathie Bo NP PCP - General Family Medicine 08/30/19 09/07/19 No, Physician PCP - General 09/08/19 10/29/19 No, Physician PCP - General 10/30/19 04/02/21 Tami Saha NP [address] [place] [address] PCP - General 04/03/21 documented as of this encounter
--- OUTSIDE RECORDS SUMMARY | 2024-12-22 19:23 | XMS_ITS | Clinical Summary ---
Author Organization [facility] Address [address] [place] [address] Care Team Providers Care Congregational Care Pastor Name Role Phone Tami Saha NP Primary Care Provider [phone] Allergies No known active allergies Medications cyclobenzaprine (FLEXERIL) 5 mg tablet Take 1 tablet (5 mg total) by mouth nightly as needed for muscle spasms 03/08/20 24 Active acetaminophen (TYLENOL) 500 mg tablet Take 2 tablets (1,000 mg total) by mouth every 6 (six) hours as needed for pain Active fluticasone propionate (FLONASE) 50 mcg/actuation nasal spray Administer 1 spray into each nostril daily as needed for rhinitis or allergies 06/13/19 25 Active Parisa 24 Fe 1 mg-20 mcg (24)/75 mg (4) per tabletIndications : Contraception Take 1 tablet by mouth nightly 06/22/19 25 Active ibuprofen 200 mg tab/cap Take 4 tablet/capsule (800 mg total) by mouth every 6 (six) hours as needed for pain Active acetaminophen-asp irin-caffeine (EXCEDRIN MIGRAINE) 250-250-65 mg per tabletIndications :Migraine Take 1 tablet by mouth every 6 (six) hours as needed for headaches Active hydrOXYzine (ATARAX) 10 mg tabletIndications :anxiety Take 1 tablet (10 mg total) by mouth 3 (three) times a day as needed for anxiety Active HYDROcodone-aceta minophen (NORCO) 5-325 mg per tabletIndications :Pain Take 1 tablet by mouth every 6 (six) hours as needed for pain 15 tablet 08/12/19 25 Active predniSONE (DELTASONE) 10 mg tablet Take 6 pills the 1st dy, 5 pills the 2nd dy, 4 pills the 3rd dy, taper by 1 each dy until gone 21 tablet 08/15/19 25 Active ondansetron ODT (ZOFRAN-ODT) 4 mg disintegrating tablet Take 1 tablet (4 mg total) by mouth every 8 (eight) hours as needed for nausea or vomiting 20 tablet 08/15/19 25 Active amoxicillin (AMOXIL) 875 mg tablet Take 1 tablet (875 mg total) by mouth Active busPIRone (BUSPAR) 5 mg tablet TAKE 1 TABLET BY MOUTH TWICE DAILY FOR ANXIETY 07/20/19 25 Active cetirizine (ZyrTEC) 10 mg tablet Take 1 tablet (10 mg total) by mouth daily Active docusate sodium (Colace) 100 mg capsule Take 1 capsule every day by oral route as needed. 08/22/19 25 Active fluconazole (DIFLUCAN) 150 mg tablet TAKE 1 TABLET BY MOUTH ONCE FOR 1 DAY 09/05/19 25 Active naloxone (NARCAN) 4 mg/actuation spray,non-aerosol CALL 911. ADMINISTER A SINGLE SPRAY INTRANASALLY INTO ONE NOSTRIL UPON SIGNS OF OPIOID OVERDOSE. MAY REPEAT AFTER 3 MINUTES IF NO RESPONSE. Active nitrofurantoin monohydrate (MACROBID) 100 mg capsule TAKE 1 CAPSULE BY MOUTH EVERY 12 HOURS FOR 7 DAYS Active methylPREDNISolon e (MEDROL DOSEPACK) 4 mg Dosepack Take as directed on package 1 packet 11/22/19 25 Active amoxicillin-clavu lanate (AUGMENTIN) 875-125 mg per tablet Take 1 tablet (875 mg of amoxicillin total) by mouth 2 (two) times a day for 10 days 20 tablet 12/23/19 25 025 Active ofloxacin (FLOXIN) 0.3 % otic solution Administer 5 drops into the right ear daily Start 1 week after surgery and continue until 1st follow up 10 mL 3 12/23/19 25 Active ofloxacin (FLOXIN) 0.3 % otic solution Administer 5 drops into the right ear daily Start 1 week after surgery and continue until 1st follow up 10 mL 3 08/29/19 25 08/29/2 025 Discontinu ed(Reorder ) amoxicillin-clavu lanate (AUGMENTIN) 875-125 mg per tablet Take 1 tablet (875 mg of amoxicillin total) by mouth 2 (two) times a day for 10 days 20 tablet 11/22/19 025 Active Problems Problem Noted Date Diagnosed Date Environmental and seasonal allergies 08/24/2024 Less than a high school diploma 08/24/2024 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 08/24/2024 Migraine 08/24/2024 Muscle spasm 08/24/2024 Nicotine dependence due to vaping non-tobacco pr oduct 08/24/2024 Cholesteatoma of right ear 08/11/2024 Conductive hearing loss of r ight ear with unrestricted hearing of left ear 08/11/2024 Chronic mastoiditis, right 08/11/2024 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 Refer to ortho for further eval. Contusion of right little finger with damage to nail 02/17/2017 Assessment & Plan (02/17/2017 8:11 AM CDT): Will obtain x-ray. Finger splint. Ibuprofen for pain as needed. Closed fracture of left ankle 02/17/2017 Contusion of right little finger 02/17/2017 Encounters Date Type Department Care Team Description 12/22/2024 Orders Only [facility] Medicine Otolaryngology [address], [address] [place] [address] Inna Herrera, [facility] 12/22/2024 Orders Only [facility] Medicine Otolaryngology [address], [address] [place] [phone] Inna Herrera, [facility] 12/22/2024 Orders Only [facility] Medicine Otolaryngology [address], [address] [address] Inna Herrera, [facility] 11/21/2024 Orders Only [facility] Medicine Otolaryngology [address], [address] [phone] Malaika Knight, [facility] 10/18/2024 Orders Only [facility] Otolaryngology [address], [address] [address] Malaika Knight, [facility] 10/04/2024 8:20 AM CDT Procedure visit [facility] Otolaryngology [address], [address] [address] Conductive hearing loss of right ear with unrestricted hearing of left ear (Primary Dx) 10/04/2024 8:20 AM CDT Office Visit [facility] Otolaryngology [address], [address] [address] Trell Carrera MD Conductive hearing loss, bilateral (Primary Dx); Bilateral chronic otitis media from Last 3 Months Immunizations Immunization Administration Dates Next Due DTaP 10/25/2006,08/18/2002,2001 DTaP / HiB / IPV 2001,2001 DTaP / IPV 11/28/2012 HPV, Quadrivalent 05/31/2013,02/01/2013,11/29/19 13 Hep A, Pediatric 11/02/2003,04/06/2003 Hep B, Adolescent or Pediatric 2001,2000,2001 Hib (PRP-T) 08/18/2002 IPV 10/25/2006,01/24/2002,2001 Influenza, Trivalent, IM (MDV) 01/23/2014,2012,03/07/2008 MMR 01/24/2002 MMRV 10/25/2006 Meningococcal Polysaccharide (Menomune) 11/29/19 13 Pneumococcal Conjugate PCV 13 2001 Varicella 01/24/2002 Surgical History Surgery Date Site/Laterality Comments VAGINAL DELIVERY 08/2023 & 08/2019 TYMPANOPLASTY W/ MASTOIDECTOMY 08/11/2024 Ear/Right Procedure: TYMPANOPLASTY WITH CANAL WALL DOWN MASTOIDECTOMY.; Surgeon: Trell Carrera MD; Location: [facility] OPERATING ROOM; Service: Otolaryngology; Laterality: Right; Medical devices from this surgery are in the Medical Devices section. Medical History Medical History Date Comments Motion sickness Engages in vaping Pt currently v aping nicotine with flavoring and quit vaping THC on 07/26/2024 Family History Medical History Relation Name Comments Anesthesia problems Neg Hx Relation Name Status Comments Father Alive Maternal Grandfather Alive Maternal Grandmother Alive Mother Alive Paternal Grandfather Alive Paternal Grandmother Alive Social History Tobacco Use Types Packs/Day Years Used Date Smoking Tobacco: Every Day Vaping Started: 2015 Smokeless Tobacco: Never Tobacco Cessation:Ready to Q uit: Not Asked; Counseling Given: Not Answered Comments:Pt currently vaping nicotine with flavoring and quit vaping THC on 07/26/2024 Alcohol Use Standard Drinks/Week Comments Not Currently 0 (1 standard drink = 0.6 oz pur e alcohol) [facility] IN[facility]AG[facility] SYSTEMS[facility] Answer Date Recorded In the past 12 months has e [employer], creads, oil, or water [employer] threatened to shut off services in your [...] How often do you attend chur or islam services? Never 08/26/2023 Do you belong to any clubs o r organizations such as gnosticism groups, unions, fraternal or athletic groups, or [...] Date Recorded PHQ-2 Total Score 0 08/26/2023 [facility] - Occupational Stress Questionnaire Answer Date [...] place to sleep or slept in a half-way (including now)? 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 PROCESSOR Gender Identity Female 03/12/2024 8:00 AM PAN RECLAIM PROCESSOR Sexual Orientation Asexual 03/12/2024 8: 00 AM PAN RECLAIM PROCESSOR Obstetrics History Para Term AB IAB SAB Ectopic Multiple Livin g Live Births 2 2 2 0 2 2 Date Outcome GA Total Labor Labor/2nd/3rd Weight Sex Type Anes PTL Jody A1 A5 Name Clin 2019 Term 39w 5d 9h 20m 8h 10m/1h 03m/0h 07m 2.825 kg (6 lb 3.7 oz) M Vag-Sp ont Epidur al N Livin g 3 6 COUGH FARHAN,B OYMIC ELENITA grey, Jessica sadler MD Complications:None Delivery Location:[facility] ([facility]) 2023 Term 39w 2d 1h 02m 0h 44m/0h 11m/0h 07m 2.86 kg (6 lb 4.9 oz) F Vagina l Epidur al N Livin g 8 9 Jad Rodriguez MD Complications:Precipitous La bor (<3 hours) Delivery Location:[facility] ([facility]) Last Filed Vital Signs Vital Sign Reading Time Taken Comments Blood Pressure 102/58 08/11/2024 10:30 AM CDT Pulse 76 08/11/2024 10:30 AM CDT Temperature 36.4 C (97.5 F) 08/11/2024 9:45 AM CDT Respiratory Rate 18 08/11/2024 10:3 0 AM CDT Oxygen Saturation 98% 08/11/2024 10: 30 AM CDT Inhaled Oxygen Concentration - - Weight 47.6 kg (104 lb 14.4 oz) 08/11/2024 6:09 AM CDT Height 149.9 cm (4' 11) 08/11/2024 6:09 AM CDT Body Mass Index 21.19 08/11/2024 6:09 AM CDT Plan of Treatment Upcoming Encounters Date Type Department Care Team (Latest Contact Info) Description 02/09/2025 10:55 AM CDT Hospital Encounter [facility] Operating Room [address] [place] [address] Trell Carrera MD [address] DEPT OTOLARYNGOLOGY, [address] [address] 02/09/2025 10:55 AM CDT - 02/09/2025 12:25 PM CDT Surgery [facility] Operating Room [address] [place] [address] Trell Carrera MD [address] DEPT OTOLARYNGOLOGY, [address] [address] TYMPANOPLASTY WITH RECONSTRUCTION OSSICULAR CHAIN. Scheduled Procedures Name Priority Associated Diagnoses Date/Ti me TYMPANOPLASTY WITH RECONSTRUCTION OSSICULAR CHAIN. Conductive hearing loss of right ear with unrestricted hearing of left ear 02/09/2025 10:55 AM CDT Health Maintenance Due Date Last Done Comments Cervical Cancer Screening 2001 Chlamydia and Gonorrhea (GC/ CT) Screening 2001 Pneumococcal vaccine <65 (1 of 1 - PPSV23, PCV20, or PCV21) 2007 2001 Meningococcal B Vaccine (1 o f 2 - Standard) 2017 Regular Well Visit/Exam 18-64 2019 Depression Screening 12/14/2024 12/15/2023, 08/26/2023, 08/13/2023, Additional history exists Influenza Vaccine (#1) 2024 9, 01/23/2014, 02/01/2013, Additional history exists DTaP/Tdap/Td Vaccine (8 - Td or Tdap) 08/07/2029 08/08/2019, 11/28/2012, 11/28/2012, Additional history exists Hepatitis B Screening Completed 08/18/2002 , 2001, 2001, Additional history exists Varicella Vaccines Completed 10/25/2006, 0 10/25/2006, 01/24/2002 HPV Vaccines Completed 05/31/2013, 12/2012, 11/28/2012 Hepatitis C Screening Completed 02/17/2023 Medical Devices Implanted Type Area Airdox Fitter Device Identifier Shelf Expiration Date Model / Serial / Lot Implantech Sheeting Silastic Non Reinforced [employer] [id number] Silicone 23-700-40 - [id number] Implanted:Qty: 1 on 08/11/2024 by Trell Carrera MD at [facility] Right: Ear Implantech [id number] 08/04/2028 [id number] Procedures Procedure Name Priority Date/Time Associated Diagnosis Comments AUDBASE RESULTS 10/04/2024 8:05 AM CDT HEPATITIS C ANTIBODY Routine 02/17/2023 from Last 3 Months or Most Recently Relevant to Health Maintenance Results * AudBase Results (10/04/2024 8:05 AM CDT) Provider Scanning AUDIOLOGY SERVICES ORDERABLES Final Result * Hepatitis C antibody Blood (02/17/2023) SCRIBED HCV ab negative [facility] Blood Peter Briggs MD LAB MICROBIOLOGY - GEN ERAL ORDERABLES Final Result [facility] from Last 3 Months or Most Recently Relevant to Health Maintenance Insurance [facility] Advance Directives For more information, please contact: [phone] * Full Code (Latest Code Status on File) Date Activated Date Inactivated Comments 08/25/2023 3:45 PM 08/26/2023 7:37 PM * Full Code Date Activated Date Inactivated Comments 08/24/2023 7:26 PM 08/25/2023 3:45 PM Full CPR in c ase of cardiopulmonary arrest * Full Code Date Activated Date Inactivated Comments 09/09/2019 11:16 AM 09/11/2019 5:28 PM * Full Code Date Activated Date Inactivated Comments 09/08/2019 11:33 AM 09/09/2019 11:16 AM Full CPR i n case of cardiopulmonary arrest Care Teams Congregational Care Pastor Relationship Specialty Start Date End Date Tami Saha NP [address] [place] [address] PCP - General 04/03/21
--- OUTSIDE RECORDS SUMMARY | 2024-12-22 19:23 | XMS_ITS | Encounter Summary ---
Author Organization [facility] Address [address] [place] [address] Phone Care Team Providers Care Sheet Hanger Name Role Phone Tami Saha NP Primary Care Provider [phone] Encounter Details Date Type Department Care Team (Late st Contact Info) Description 12/22/2024 Orders Only [facility] [address], [address] [place] [address] Inna Herrera CMA Social History Tobacco Use Types Packs/Day Years Used Date Smoking Tobacco: Every Day Vaping Started: 2015 Smokeless Tobacco: Never Comments:Pt currently vaping nicotine with flavoring and quit vaping THC on 07/26/2024 Alcohol Use Standard Drinks/Week Comments Not Currently 0 (1 standard drink = 0.6 oz pur e alcohol) [facility] Utilities Answer Date Recorded In the past 12 months has e electric, gas, oil, or water [employer] threatened to shut off services in your [...] How often do you attend chur or yazidi services? Never 08/26/2023 Do you belong to any clubs o r organizations such as buddhist groups, unions, fraternal or athletic groups, or [...] Date Recorded PHQ-2 Total Score 0 08/26/2023 [facility] [place] of Occupat ional Health - Occupational Stress [...] place to sleep or slept in a [place] health care facility (including now)? 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 Gender Identity Female 03/12/2024 8:00 AM HEAT TREAT FURNACE OPERATOR Sexual Orientation Asexual 03/12/2024 8: 00 AM HEAT TREAT FURNACE OPERATOR documented as of this encounter Ordered Prescriptions Prescription Sig Dispense Quantity Refills Last Filled Start Date End Date amoxicillin-clavul anate (AUGMENTIN) 875-125 mg per tablet Take 1 tablet (875 mg of amoxicillin total) by mouth 2 (two) times a day for 10 days 20 tablet 12/22/2024 documented in this encounter Plan of Treatment Upcoming Encounters Date Type Department Care Team (Latest Contact Info) Description 02/09/2025 10:55 AM CDT Hospital Encounter [facility] Operating [address] [facility] [facility] [facility] [place] [phone] Trell Carrera MD [address] DEPT OTOLARYNGOLOGY, [facility] [address] [place] [address] 02/09/2025 10:55 AM CDT - 02/09/2025 12:25 PM CDT Surgery [facility] Operating Room [address] [facility] [place] [phone] Trell Carrera MD [address] DE[address] OT[address]OLOGY, [address] [id number] TYMPANOPLASTY WITH RECONSTRUCTION OSSICULAR CHAIN. Scheduled Procedures Name Priority Associated Diagnoses Date/Ti me TYMPANOPLASTY WITH RECONSTRUCTION OSSICULAR CHAIN. Conductive hearing loss of right ear with unrestricted hearing of left ear 02/09/2025 10:55 AM CDT documented as of this encounter Visit Diagnoses Not on filedocumented in this encounter Care Teams Sheet Hanger Relationship Specialty Start Date End Date Tami Saha NP [address] [place] [address] PCP - General 04/03/21 documented as of this encounter
--- NOTE | 2024-12-22 19:26 | ED_ITS ---
HPI - General Adult General Chief complaint: Ear Stated complaint: right ear Time Seen by Provider: 12/22/24 19:31 Source: patient, RN notes reviewed and old records reviewed Mode of arrival: ambulatory Limitations: no limitations History of Present Illness HPI narrative: 24-year-old female presents to the [facility] with right ear pain 2 days ago. Had a Mastoidectomy right ear in July, had a bone graft. Patient called her surgeon today and was prescribed Augmentin and ofloxacin ear drops. States that she went to use the ear drops and it burned. No drainage. No surrounding erythema. No preauricular lymphadenopathy Related Data Home Medications ?Medication ?Instructions ?Recorded ?Confirmed ?Last Taken ?Type norethindrone 1 mg-ethinyl tablet 05/28/24 Unknown Hi story estradiol 20 mcg (24)-iron 75 mg (4) tablet (Parisa 24 Fe) amoxicillin 875 mg-potassium tablet 12/22/24 Unknown History clavulanate 125 mg tablet Allergies Allergy/AdvReac Type Severity Reaction Status Date / Time No Known Allergies Allergy Verified 12/22/24 19:34 Review of Systems Review of Systems: All systems reviewed & are unremarkable except as noted in HPI and below Constitutional: Constitutional: Reports no additional constitutional complaints ENT: Reports as per HPI and Reports otalgia (right) Cardiovascular: Cardiovascular: Reports no additional cardiovascular complaints, Denies chest pain and Denies dyspnea Respiratory: Respiratory: Reports no additional respiratory complaints, Denies chest congestion, Denies cough and Denies dyspnea Musculoskeletal: Musculoskeletal: Reports no additional musculoskeletal complaints Integumentary/Breasts: Skin/Breast: Reports system reviewed and no additional complaints, except as docu PMFSH Past Medical History Medical History (Updated 12/22/24 @ 19:43 by Deepika Yost APRN) Ear infection TMJ (temporomandibular joint syndrome) Surgical History Surgical History (Updated 12/22/24 @ 19:43 by Deepika Yost APRN) H/O mastoidectomy 07/2024 right No pertinent past surgical history Family History Family History Other No acute medical problems Social History Social History Smoking status: Current every day smoker Tobacco type: e-cigarettes/vaping Alcohol intake: never Substance use: current Substance use type: marijuana Additional living arrangements comments: Lives with significant other Gender identity (if verbalized by the patient): Female Comments At the time of my signature, I reviewed and agree with the nursing past medical, surgical, social, and family history. There is no relevant family history pertinent to the patient complaint. Exam Const: General: cooperative, healthy appearing, comfortable, no acute distress, well developed, alert and well nourished Nutritional Appearance: well nourished Orientation/consciousness: patient oriented x3 Limitations: no limitations HENMT: Head: normal to inspection Ears: hearing grossly normal bilaterally, external ears normal, EAC's normal, mastoids normal, no periauricular adenopathy and TM abnormal other (Opaque white-right) Face/Nose/Sinus: Normal external nose present Eyes: General: appearance normal, both eyes and all related structures Alignment and Position: alignment normal Neck: Neck: normal visual inspection, full ROM, no lymphadenopathy and no meningeal signs Chest: Chest palpation & inspection: normal inspection of the chest Resp: Effort & Inspection: normal respiratory effort and able to speak in complete sentences Cardio: Rate: regular rate Skin: General skin exam: normal color and no rashes or lesions noted Neuro: General: patient oriented x3, gait normal, moves all extremities and no meningeal signs Cognition (Neuro): normal cognition Speech: normal speech Gait exam (Neuro): Normal gait present Extrem: General: normal to inspection, full ROM, capillary refill normal and normal gait Psych: Appearance: grossly normal and well kempt Mental Status: mental s tatus grossly normal Speech and movement: Normal speech and movement present and Clear speech present Affect: normal affect Attitude: cooperative Course Course Level of Care: Express Care Visit Vital Signs Vital signs: Vital Signs Temperature 98 F 12/22/24 19:23 Pulse Rate 83 12/22/24 19:23 Respiratory Rate 16 12/22/24 19:23 Blood Pressure 134/78 12/22/24 19:23 Pulse Oximetry 100 12/22/24 19:23 Oxygen Delivery Room Air 12/22/24 19:23 Temperature 98 F 12/22/24 19:23 Pulse Rate 83 12/22/24 19:23 Respiratory Rate 16 12/22/24 19:23 Blood Pressure 134/78 12/22/24 19:23 Pulse Oximetry 100 12/22/24 19:23 Oxygen Delivery Room Air 12/22/24 19:23 Reviewed Medical Decision Making MDM Narrative Medical decision making narrative: Patient sitting comfortably in exam room. Patient is nontoxic, vitals are stable. Patient presents with 2 day history of right ear pain. History of a mastoidectomy, has type contacted ENT at [place], was prescribed ofloxacin and Augmentin. Right ear TM, opaque white. No drainage noted. Patient was concerned that the ofloxacin she was prescribed burned after to drops. Encourage patient continue with the antibiotics that have been prescribed and to follow-up with ENT Discharge instructions reviewed with patient, as well as provided in writing per nursing staff. The instructions also include specific and strict return/GO TO THE ER as well as f/u information. All questions have been answered, and the patient deny any further questions with discharge and discharge plan. Some parts of this dictation were generated by voice recognition software and may contain typographical and/or grammatical inaccuracies. Differential Diagnosis Differential Diagnosis: Otitis media, serous otitis, otitis externa Medical Records Medical records reviewed: Yes I reviewed the external patient's medical records. Vital Signs Vital Signs: Vital Signs Temperature 98 F 12/22/24 19:23 Pulse Rate 83 12/22/24 19:23 Respiratory Rate 16 12/22/24 19:23 Blood Pressure 134/78 12/22/24 19:23 Pulse Oximetry 100 12/22/24 19:23 Oxygen Delivery Room Air 12/22/24 19:23 Temperature 98 F 12/22/24 19:23 Pulse Rate 83 12/22/24 19:23 Respiratory Rate 16 12/22/24 19:23 Blood Pressure 134/78 12/22/24 19:23 Pulse Oximetry 100 12/22/24 19:23 Oxygen Delivery Room Air 12/22/24 19:23 Reviewed Lab Data Lab results reviewed: Yes I reviewed the patient's lab results. Labs: Reviewed Critical Care Time Critical Care Time Critical Care Time: No Discharge Plan Discharge Clinical Impression: Earache on right, History of right mastoidectomy Patient Disposition: Home Condition: Stable Instructions: Antibiotic Form, Earache (ED) Additional Instructions: Continue using antibiotics, ear drops as prescribed by your ENT doctor. If your symptoms get worse please contact your ENT or proceed to [place] Patient Language: Ecuadorean Prescriptions: No Action Parisa 24 Fe 1 mg-20 mcg (24)/75 mg (4) tablet ofloxacin 0.3 % drops 5 drp EACH EAR BID 7 Days Qty: 10 0RF amoxicillin-pot clavulanate 875-125 mg tablet Follow-up/Referrals: Saha,Tami Roberts APN [Primary Care Provider, Unknown] - 2 Weeks Time of Disposition: 19:41
== END 2024-12-22 19:45 | disposition home or self-care (01) ==
PROVIDERS: Emergency Provider Nurse Practitioner; PCP Nurse Practitioner Family
DX: H92.01 Otalgia, right ear (principal); F17.290 Nicotine dependence, other tobacco product, uncomplicated; Z98.890 Other specified postprocedural states
CPT/HCPCS: 99211; G0463

== ENCOUNTER 2025-03-23 12:10 | Emergency (ER) | payer OTHER, SELFPAY ==
--- OUTSIDE RECORDS SUMMARY | 2025-03-23 12:13 | XMS_ITS | Clinical Summary ---
Author Organization [facility] Address [address] [place] [address] Care Team Providers Care Greenskeeper Laborer Name Role Phone Yifan, Tami Tatum NP Primary Care Provider Allergies No known active allergies Medications acetaminophen- aspirin-caffei ne (EXCEDRIN MIGRAINE) 250-250-65 mg per tablet Take 1 tablet by mouth every 6 (six) hours as needed for headaches Active acetaminophen (TYLENOL) 325 mg tablet Take 2 tablets (650 mg total) by mouth every 6 (six) hours as needed for pain or headaches Active SUMAtriptan (IMITREX) 100 mg tabletIndicati ons:Migraine Take 1 tablet (100 mg total) by mouth once as needed for migraine (headache) for up to 1 dose May repeat one time after 2 hours if needed. 9 tablet 5 5 Active propranolol LA (INDERAL LA) 60 mg 24 hr capsule Take 1 capsule (60 mg total) by mouth daily 30 capsule 5 5 026 Active HYDROcodone-ac etaminophen (NORCO) 5-325 mg per tabletIndicati ons:Pain Take 1 tablet by mouth every 6 (six) hours as needed for pain 15 tablet 5 Active topiramate (TOPAMAX) 25 mg tabletIndicati ons:Migraine Prevention One tablet twice a day for 1 week then increase to 2 tablets twice daily. 120 tablet 5 5 Active methylPREDNISo lone (MEDROL DOSEPACK) 4 mg Dosepack Take as directed on package 1 packet 5 Active ofloxacin (FLOXIN) 0.3 % otic solution Administer 5 drops into the left ear daily 5 mL 3 5 Active ofloxacin (FLOXIN) 0.3 % otic solution Administer 5 drops into the right ear daily Start 1 week after surgery and continue until 1st follow up 5 mL 3 5 025 Discontinu ed(Reorder ) ofloxacin (FLOXIN) 0.3 % otic solution Administer 5 drops into the right ear daily Start 1 week after surgery and continue until 1st follow up 5 mL 3 5 025 Discontinu ed(Reorder ) amoxicillin-cl avulanate (AUGMENTIN) 875-125 mg per tablet Take 1 tablet (875 mg of amoxicillin total) by mouth 2 (two) times a day for 10 days 20 tablet 5 025 fluconazole (Diflucan) 150 mg tablet Take 1 tablet (150 mg total) by mouth once for 1 dose 1 tablet 5 025 ofloxacin (FLOXIN) 0.3 % otic solution Administer 5 drops into the right ear daily Start 1 week after surgery and continue until 1st follow up 5 mL 3 5 025 Discontinu ed(Reorder ) Active Problems Problem Noted Date Diagnosed Date Acute costochondritis 01/02/2025 Acute otitis media, right 01/02/2025 Acute serous otitis media of right ear 5 Cerumen impaction 01/02/2025 Close exposure to COVID-19 virus 01/02/2025 Pharyngitis 01/02/2025 Upper respiratory infection 01/02/2025 Vomiting 01/02/2025 Environmental and seasonal allergies 08/24/2024 Less than [...] 02/12/2023 First trimester 02/12/2023 Hypoglycemia 02/12/2023 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, [facility] [place] [facility] [address] [place] [address] Inna Herrera, [facility] 03/19/2025 Orders Only [facility] Medicine Otolaryngology [address], [address] [place] [address] Inna Herrera, [facility] 03/09/2025 [facility] Only [facility] [address] [facility] [facility] [place] [facility] [address] [place] [address] Inna Herrera, [facility] 03/06/2025 Orders Only [facility] Otolaryngology [address], [address] [place] [address] Inna Herrera CMA 03/02/2025 Orders Only [facility] [address] [address] Chiki Carlos II, MD 02/07/2025 1:40 PM CDT - 02/07/2025 3:10 PM CDT Surgery [facility] Operating Room [address] [place] [phone] Trell Carrera MD TYMPANOPLASTY WITH RECONSTRUCTION OSSICULAR CHAIN. 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, [address] [place] [address] Trell Carrera MD Conductive hearing loss, bilateral (Primary Dx); Bilateral chronic otitis media 01/02/2025 8:40 AM CDT Procedure visit [facility] Medicine Otolaryngology [address], [address] [place] [address] Conductive hearing loss of right ear with unrestricted hearing of left ear (Primary Dx) 01/02/2025 Orders Only [facility] Otolaryngology [address] [facility], [facility] [place] [facility] [address] [place] [address] Inna Herrera, HUNTING AND FISHING GUIDE 12/22/2024 Orders Only [facility] Otolaryngology [address] [facility] [facility] [place] [facility] [address] [place] [address] Heladio Herreraylar, HUNTING AND FISHING GUIDE 12/22/2024 Orders Only [facility] Otolaryngology [address], [address] [phone] Inna Herrera, HUNTING AND FISHING GUIDE 12/22/2024 Orders Only [facility] Otolaryngology [address], [address] [phone] Inna Herrera, HUNTING AND FISHING GUIDE from Last 3 Months Immunizations Immunization Administration [...] 01/24/2002 Surgical History Surgery Date Site/Laterality Comments TYMPANOPLASTY W/ MASTOIDECTOMY 08/11/2024 Ear/Right Procedure: TYMPANOPLASTY WITH CANAL WALL DOWN MASTOIDECTOMY.; Surgeon: Trell Carrera MD; Location: [facility] OPERATING ROOM; Service: Otolaryngology; Laterality: Right; Medical devices from this surgery are in the Medical Devices section. TYMPANOPLASTY WITH RECONSTRUCTION OSSICULAR CHAIN 02/07/2025 Ear/Right Procedure: TYMPANOPLASTY WITH RECONSTRUCTION OSSICULAR CHAIN.; Surgeon: Trell Carrera MD; Location: [facility] OPERATING ROOM; Service: Otolaryngology; Laterality: Right; Medical devices from this surgery are in the Medical Devices section. Medical History Medical History Date Comments Motion sickness Engages in vaping Pt currently v aping nicotine with flavoring and quit vaping THC on 07/26/2024 HL (hearing loss) TMJ dysfunction 10/14/2019 Family History Medical History Relation Name Comments [...] drink = 0.6 oz pur e alcohol) [employer] Answer Date Recorded In the past 12 months has e Face++, gas, oil, or water [employer] threatened to shut off services in your [...] 08/26/2023 How often do you attend chur ch or rastafarian services? Never 08/26/2023 Do you belong to any clubs o r organizations such as alevism groups, unions, fraternal or athletic groups, or school groups? No 08/26/2023 How often do you attend meet ings of the clubs or organizations you belong to? Never 08/26/2023 Are you , , di vorced, , never , or living with a partner? Living with partner 08/26/2023 Overall Financial Resource Strain (CARDIA) Answe r Date Recorded How hard is it for you to pa y for the very basics like food, housing, medical care, and heating? Not hard at all 08/26/2023 PHQ-2 Answer Date Recorded PHQ-2 Total Score 0 08/26/2023 [facility] - Occupational Stress [...] place to sleep or slept in a alf (including now)? No 08/26/2023 [place] Depression Scale Answer Date Recorded [place] Depression Scale Total 12 12/15/2023 The thought of harming myself has occurred to me . Never 12/15/2023 PHQ-9 Answer Date Recorded PHQ-9 Total Score 0 08/24/2023 AUDIT-C Answer Date Recorded Q1: How often do you have a drink containing alcohol? Never 02/07/2025 Q2: How many drinks containi ng alcohol do you have on a typical day when you are drinking? Patient does not drink Q3: How often do you have si x or more drinks on one occasion? Never 02/07/2025 Personal Safety Answer Date Recorded Have you ever been in or are you currently in a harmful physical or emotional relationship or is someone making you feel afraid or unsafe? Denies 02/07/2025 Comments No Sex and Gender Information Value Date Recorded Sex Assigned at Not on file Legal Sex Female 10:39 AM TOTER Gender Identity Female 03/12/2024 8:00 AM TOTER Sexual Orientation Asexual 03/12/2024 8: 00 AM TOTER Obstetrics History Para Term AB IAB SAB [...] Epidur al N Livin g 8 9 Vishal wall, Jad wilkerson MD Complications:Precipitous La bor (<3 hours) Delivery Location:This Facil ity ([facility]) Last Filed Vital Signs Vital Sign Reading Time Taken Comments Blood Pressure 99/61 02/07/2025 3:30 PM CDT Pulse 73 02/07/2025 3:30 PM CDT Temperature 36.4 C (97.5 F) 02/07/2025 2:50 PM CDT Respiratory Rate 16 02/07/2025 3:30 PM CDT Oxygen Saturation 100% 02/07/2025 3:30 PM CDT Inhaled Oxygen Concentration - - Weight 55.8 kg (123 lb) 02/07/2025 11:40 AM CDT Height 147.3 cm (4' 10) 02/07/2025 11:40 AM CDT Body Mass Index 25.71 02/07/2025 11:40 AM CDT Plan of Treatment Health Maintenance Due Date Last Done Comments Cervical Cancer Screening 2001 Chlamydia and Gonorrhea (GC/ CT) Screening 2001 Pneumococcal vaccine <65 (1 of 1 - PPSV23, PCV20, or PCV21) 2007 2001 Regular Well Visit/Exam 18-64 2019 Depression Screening 12/14/2024 12/15/2023, 08/26/2023, 08/13/2023, Additional history exists Influenza Vaccine (#1) 2024 9, 01/23/2014, 02/01/2013, Additional history exists DTaP/Tdap/Td Vaccine (8 - Td or Tdap) 08/07/2029 08/08/2019, 11/28/2012, 11/28/2012, Additional history exists Hepatitis B Screening Completed 08/18/2002 , 2001, 2001, Additional history exists Varicella Vaccines Completed 10/25/2006, 0 10/25/2006, 01/24/2002 HPV Vaccines Completed 05/31/2013, 1012/2012, 11/28/2012 Hepatitis C Screening Completed 02/17/2023 Medical Devices Implanted Type Area Sand Cutter Operator Device Identifier Shelf Expiration Date Model / Serial / Lot Implantech Sheeting Silastic Non Reinforced Alliedsil [id number] Silicone 23-700-40 - [id number] Implanted:Qty: 1 on 08/11/2024 by Trell Carrera MD at [facility] Right: Ear Implantech [id number] 08/04/2028 23-700-40 / / [id number] [employer] Porp [place] Prosthesis Ossicular 655 - [id number] Implanted:Qty: 1 on 02/07/2025 by Trell Carrera MD at [facility] [place] Right: Ear [employer] 06/24/2029 655 / / [id number] Description:Non-clinical rocco ting has demonstrated that patients with these specific [employer] ossicular implants can undergo MRI safely, immediately after implantation under the following conditions: Static magnetic field of 3-Muriel or less Maximum spatial gradient magnetic field of 20,000-Gauss/cm or less. MR system reported, [id number]-[id number] specific absorption rate (ROBB) of 4 - W/kg for 15 minutes of scanning (i.e., per pulse sequence). Procedures Procedure Name Priority Date/Time Associated Diagnosis Comments SURGICAL PATHOLOGY Routine 02/07/2025 2: 02 PM CDT Conductive hearing loss of right ear with unrestricted hearing of left ear IL AN PROCEDURE PLACEHOLDER Routine 02/07/2025 1:48 PM CDT IL AN ELECTIVE ENDOTRACHEAL AIRWAY Routine 02/07/2025 1:48 PM CDT TYMPANOPLASTY WITH RECONSTRUCTION OSSICULAR CHAIN. 02/07/2025 1:32 PM CDT Conductive hearing loss of right ear with unrestricted hearing of left ear POCT HCG, URINE Routine 02/07/2025 AUDBASE RESULTS 01/02/2025 9:02 AM CDT HEPATITIS C ANTIBODY Routine 02/17/2023 from Last 3 Months or Most Recently Relevant to Health Maintenance Results * Surgical pathology (02/07/2025 2:02 PM CDT) Tissue (Middle ear contents) 02/07/2025 2:02 PM CDT Narrative PATHOLOGY TEMP LLB FOR ASP - 02/09/2025 10:09 AM CDT EPIC results best viewed via link to PDF [facility] [place] [address] Note to Patients: This report may contain a detailed description of human tissue sent by a health care provider to the laboratory for pathologic evaluation. The content of this report is essential for diagnosis and may provide important critical findings. This information may be unfamiliar to patients to review without a medical professional present. It is advised that the patient review this report in the presence of a health care provider who can answer questions and explain the details. SURGICAL PATHOLOGY REPORT FINAL Patient Name: GLADIS GAMEZ Gender: F : 2000 (Age: 25) Address: [address] [place] [address] Hospital #: [id number] Taken:02/07/2025 Received:02/07/2025 Reported: 02/09/2025 Patient Type: [facility] EP SAME Client [facility] Service: Surgery Location: Physician(s): Mir Lane NP Diagnosis: A. Right middle ear contents, extraction: - Cholesteatoma alak/02/09/2025 08:16 By this signature, I attest that the above diagnosis is based upon my personal examination of the slides(and/or other material indicated in the diagnosis). Cipriano Griffin MD PhD Report Electronically Reviewed and Signed Out By Cipriano Griffin MD PhD 02/09/2025 10:09:51 Rowena Haas M.D. History: The patient is a 25-year-old woman presenting with conductive hearing loss of right ear with unrestricted hearing of left ear. Operative procedure: Tympanoplasty with reconstruction ossicular chain. Specimen(s) Received: A: Right middle ear contents Gross Description: Received in formalin, labeled with the patient's identifiers and right middle ear contents are multiple ku and white fragments of tissue measuring 2.5 x 0.9 x 0.2 cm in aggregate. Labeled A1. Jar 0. sxst/02/08/2025 10:44 PA(s): Ciara Levy By this signature, I attest that the above diagnosis is based upon my personal examination of the slides(and/or other material). Addenda/Procedures Microscopic slide review and interpretation for this case was performed at [facility], Department of Surgical Pathology, [address] [facility] [place], [place] [id number], [place] [address] CLIA # [id number] The performance characteristics of some immunohistochemical stains, fluorescence in-situ hybridization tests and immunophenotyping by flow cytometry cited in this report (if any) were determined by the Surgical Pathology and Flow Cytometry Departments at [facility] as part of an ongoing quality control checker program and in compliance with federally mandated regulations drawn from the Clinical Laboratory Improvement Act of 1988 (CLIA '88). Some of these tests rely on the use of analyte specific reagents and are subject to specific labeling requirements by the US Food and Drug Administration. Such diagnostic tests may only be performed in a facility that is certified by the Department of Health and Human Services as a high complexity laboratory under CLIA '88. The FDA has determined that such clearance or approval is not necessary. This test is used for clinical purposes. It should not be regarded as investigational or for research. Nevertheless, federal rules concerning the medical use of analyte specific reagents require that the following disclaimer be attached to the report: This test was developed and its performance characteristics determined by the Surgical Pathology and Flow Cytometry Departments of [facility]. It has not been cleared or approved by the U. S. Food and Drug Administration. IMAGES AND SCANNED DOCUMENTS, IF INCLUDED, ONLY VIEWABLE IN PDF VERSION OF REPORT us Trell Carrera MD LAB PATHOLOGY ORDERABLES Fi nal Result PATHOLOGY TEMP LLB FOR ASP * IL AN ELECTIVE ENDOTRACHEAL AIRWAY, IL AN PROCEDURE PLACEHOLDER (02/07/2025 1:48 PM CDT) Narrative Khadijah Estrada CRNA - 02/07/2025 1:48 PM CDT Khadijah Estrada CRNA 02/07/2025 1:49 PM Airway Patient location: OR Urgency: elective Indications for airway management: anesthesia Difficult airway: no Staff: Placed by: BAKER BREAD: Khadijah Estrada CRNA Emergent airway documentation: Risks and benefits discussed: yes Consent obtained: yes Consent given by: patient Airway prep: Preoxygenated: yes Patient position: sniffing Mask difficulty assessment: 0 - not attempted Spontaneous ventilation during airway: absent Sedation level during airway: GA Final airway details: Final airway type: endotracheal airway Tube type: ETT ETT size: 6.5 mm Cuffed: yes Technique used for successful ETT placement: direct laryngoscopy Devices/Methods used in placement: intubating stylet Insertion site: oral Blade type: Vladislav Blade size: 3 Cormack-Lehane (direct): grade IIa - partial view of glottis Cuff inflated with: air ETT to lips: 20 cm Placement verified by: auscultation and CO2 detection Airway secured with: silk tape Number of attempts: 1 Anastacio Rosario MD ANESTHESIA ORDERABLES F inal Result * POCT hCG, urine (02/07/2025) HCG, ur, POC Negative Negative Lot Number [id number] QC Backgroud Clear Acceptable QC Control Line Acceptable Urine 02/07/2025 Historical Provider POINT OF CARE TEST ORDERA BLES Final Result * AudBase Results (01/02/2025 9:02 AM CDT) Provider Scanning AUDIOLOGY SERVICES ORDERABLES Final Result * Hepatitis C antibody Blood (02/17/2023) SCRIBED HCV ab negative [facility] Blood Peter Briggs MD LAB MICROBIOLOGY - GEN ERAL ORDERABLES Final Result [facility] from Last 3 Months or Most Recently Relevant to Health Maintenance Insurance [facility] Advance Directives For more information, please contact: [phone] * Full Code (Latest Code Status on [...] n case of cardiopulmonary arrest Care Teams Greenskeeper Laborer Relationship Specialty Start Date End Date Tami Saha NP [address] [place] [address] PCP - General 04/03/21
--- OUTSIDE RECORDS SUMMARY | 2025-03-23 12:13 | XMS_ITS | Encounter Summary ---
Author Organization [facility] Address [address] [place] [address] Phone Care Team Providers Care History Tutor Name Role Phone Cathie Bo TECHNOLOGY CONSULTANT Primary Care Provider [phone] No, Physician Primary Care Provider Cathie Bo TECHNOLOGY CONSULTANT Primary Care Provider [phone] No, Physician Primary Care Provider [phone] Mamta, Physician Primary Care Provider Tami Saha TECHNOLOGY CONSULTANT Primary Care Provider Encounter Details Date Type Department Care Team (Late st Contact Info) Description 06/04/2017 Orders Only [facility] ProviderChapo MD [address] [place] [address] Social History Tobacco Use Types Packs/Day Years Used Date Smoking Tobacco: Never Smokeless Tobacco: Never Comments Unknown Sex and Gender Information Value Date Recorded Sex Assigned at Not on file Legal Sex Female 10:39 AM ADMINISTRATIVE SECRETARY Gender Identity Female 03/12/2024 8:00 AM ADMINISTRATIVE SECRETARY Sexual Orientation Asexual 03/12/2024 8: 00 AM ADMINISTRATIVE SECRETARY documented as of this encounter Plan of Treatment Not on file documented as of this encounter Procedures Procedure Name Priority Date/Time Associated Diagnosis Comments DISCHARGE LABORATORY CUMULATIVE REPORT 06/04/2017 12:00 AM ADMINISTRATIVE SECRETARY documented in this encounter Results * DISCHARGE LABORATORY CUMULATIVE REPORT (06/04/2017 12:00 AM ADMINISTRATIVE SECRETARY) Narrative 06/04/2017 12:00 AM ADMINISTRATIVE SECRETARY Ordered by an unspecified provider. us Historical Provider LAB BLOOD ORDERABLES Marcela l Result documented in this encounter Visit Diagnoses Not on filedocumented in this encounter Care Teams History Tutor Relationship Specialty Start Date End Date Cathie Bo NP PCP - General 08/04/16 03/19/19 No, Physician PCP - General 03/20/19 08/29/19 Cathie Bo NP PCP - General Family Medicine 08/30/19 09/07/19 No, Physician PCP - General 09/08/19 10/29/19 No, Physician PCP - General 10/30/19 04/02/21 Tami Saha NP [address] [place] [address] PCP - General 04/03/21 documented as of this encounter
--- OUTSIDE RECORDS SUMMARY | 2025-03-23 12:13 | XMS_ITS | Encounter Summary ---
Author Organization [facility] Address [address] [place] [address] Care Team Providers Care Pull Tab Dealer Name Role Phone Cathie Bo POLICEWOMAN Primary Care Provider [phone] No, Physician Primary Care Provider [phone] Cathie Bo POLICEWOMAN Primary Care Provider [phone] No, Physician Primary Care Provider [phone] No, Physician Primary Care Provider [phone] Tami Saha POLICEWOMAN Primary Care Provider Encounter Details Date Type Department Care Team (Late st Contact Info) Description 06/04/2017 Orders Only [facility] [address] [place] [phone] Jing Barnhart, ROHAN [address] [place] [address] Social History Tobacco Use Types Packs/Day Years Used Date Smoking Tobacco: Never Smokeless Tobacco: Never Comments Unknown Sex and Gender Information Value Date Recorded Sex Assigned at Not on file Legal Sex Female 10:39 AM FRUCTOSE LOADER Gender Identity Female 03/12/2024 8:00 AM FRUCTOSE LOADER Sexual Orientation Asexual 03/12/2024 8: 00 AM FRUCTOSE LOADER documented as of this encounter Plan of Treatment Not on file documented as of this encounter Visit Diagnoses Not on filedocumented in this encounter Care Teams Pull Tab Dealer Relationship Specialty Start Date End Date Cathie Bo NP PCP - General 08/04/16 03/19/19 No, Physician PCP - General 03/20/19 08/29/19 Cathie Bo NP PCP - General Family Medicine 08/30/19 09/07/19 No, Physician PCP - General 09/08/19 10/29/19 No, Physician PCP - General 10/30/19 04/02/21 Tami Saha NP [address] [place] [address] PCP - General 04/03/21 documented as of this encounter
--- OUTSIDE RECORDS SUMMARY | 2025-03-23 12:13 | XMS_ITS | Clinical Summary ---
Author Organization [facility] Address [address] [place] [address] Care Team Providers Care Patternmaker Wood Name Role Phone Unavailable Primary Care Provider Unavailabl e Source Comments [facility] [employer],non-owned Affiliates and Associated Physician Practices is amultiple site organization consisting of ambulatory clinics and hospital sitesin [place], [place], [place] and [place]. This disclosure is being madepursuant to the Care Everywhere program and may not contain all information available regarding this patient. Last updated 18.[facility] [employer] Active Problems Problem Noted Date Diagnosed Date [...] - 3-dose series) 01/08/2016 CHLAMYDIA/GONORRHEA SCREENING 2017 HEPATITIS C SCREENING 01/03/2019 DTAP/TDAP/TD VACCINES (1 - Tdap) 01/08/2020 HEPATITIS B VACCINE (1 of 3 - 19+ 3-dose series) 01/08/2020 PAP SMEAR 2022 DEPRESSION SCREENING 04/26/2024 COVID-19 VACCINE ( season) 2024 INFLUENZA VACCINE (#1) 2024 , 01/23/2014, 02/01/2013, Additional history exists ZOSTER VACCINE (1 of 2) 2051 HIB VACCINE Aged Out No longer eligi ble based on patient's age to complete this topic MENINGOCOCCAL (Group B) VACCINE SHARED DECISION-MAKING Aged Out No longer eligible based on patient's age to complete this topic MENINGOCOCCAL GROUPS A/C/Y/W VACCINE Aged Out No longer eligible based on patient's age to complete this topic PNEUMOCOCCAL VACCINE Aged Out No long er eligible based on patient's age to complete this topic Insurance [facility]
[2025-03-23 12:14] VITALS: BP 110/80; PULSE 85; RESP 16; TEMP 36.2; O2SAT 100
--- NOTE | 2025-03-23 12:29 | ED.EAR ---
HPI - Ear Problem General Chief complaint: Ear Stated complaint: left ear Time Seen by Provider: 03/23/25 12:29 Source: patient Mode of arrival: ambulatory Limitations: no limitations History of Present Illness HPI Narrative: 25 yo F presents with c/o pain to L ear for approx. 3 to 4 wks. Saw ENT and completed augmentin. Still having pain. hx of cholesteatoma. Had surgery to R ear in July to remove cyst. Needs same surgery to L ear. All systems reviewed and negative excetp as noted above. Related Data Home Medications ?Medication ?Instructions ?Recorded ?Confirmed ?Last Taken ?Type norethindrone 1 mg-ethinyl tablet 05/28/24 Unknown History estradiol 20 mcg (24)-iron 75 mg (4) tablet (Parisa 24 Fe) propranolol 60 mg capsule,24 mg PO 03/23/25 Unknown History hr,extended release sumatriptan succinate 50 mg tablet mg PO 03/23/25 Unknown History topiramate 25 mg tablet mg 03/23/25 Unknown History Allergies Allergy/AdvReac Type Severity Reaction Status Date / Time No Known Allergies Allergy Verified 03/23/25 12:29 [facility] Past Medical History Medical History (Updated 03/23/25 @ 12:42 by Mela Barreto APRN) Ear infection TMJ (temporomandibular joint syndrome) Surgical History Surgical History (Updated 12/23/24 @ 00:01 by Charlotte Coulter) H/O mastoidectomy 07/2024 right No pertinent past surgical history Family History Family History Other No acute medical problems Social History Social History Smoking status: Current every day smoker Tobacco type: e-cigarettes/vaping Alcohol intake: never Substance use: current Substance use type: marijuana Additional living arrangements comments: Lives with significant other Gender identity (if verbalized by the patient): Female Comments At time of signature, agree with nursing past medical, surgical, social and family history. There is no relevant family history pertinent to the presenting complaint. Exam Narrative: GENERAL: This is a well-nourished, well-developed patient, in no apparent distress. HEAD: normocephalic, atraumatic. EYES: PERRL. Sclera clear/white. Vision is grossly intact. EARS: External ears normal, left auditory canal clear and without drainage, right TM obvious surgical changes. Left TM intact, purulent fluid noted to lower aspect of TM. Hearing grossly intact. NOSE: External nose normal NECK: Neck supple, non-tender without lymphadenopathy, masses or thyromegaly. CARDIOVASCULAR: Regular rate and rhythm without murmurs, gallops, or rubs. RESPIRATORY: Clear to auscultation. Breath sounds equal bilaterally. No wheezes, rales, or rhonchi. SKIN: warm, Dry, intact with no suspicious lesions or rash, good texture and turgor. NEURO: awake, alert, and oriented to person, place and time. There were no obvious focal neurologic abnormalities. EXTREMITIES: No joint tenderness, effusion, or edema noted. Course Course Level of Care: Express Care Visit Vital Signs Vital signs: Vital Signs Temperature 36.2 C L 03/23/25 12:14 Pulse Rate 85 03/23/25 12:14 Respiratory Rate 16 03/23/25 12:14 Blood Pressure 110/80 03/23/25 12:14 Pulse Oximetry 100 03/23/25 12:14 Oxygen Delivery Room Air 03/23/25 12:14 Temperature 36.2 C L 03/23/25 12:14 Pulse Rate 85 03/23/25 12:14 Respiratory Rate 16 03/23/25 12:14 Blood Pressure 110/80 03/23/25 12:14 Pulse Oximetry 100 03/23/25 12:14 Oxygen Delivery Room Air 03/23/25 12:14 Reviewed Medical Decision Making MDM Narrative Medical decision making narrative: will treat cefdinir. Recommend Follow-up with ENT specialist at next available appointment. Vital Signs Vital Signs: Vital Signs Temperature 36.2 C L 03/23/25 12:14 Pulse Rate 85 03/23/25 12:14 Respiratory Rate 16 03/23/25 12:14 Blood Pressure 110/80 03/23/25 12:14 Pulse Oximetry 100 03/23/25 12:14 Oxygen Delivery Room Air 03/23/25 12:14 Temperature 36.2 C L 03/23/25 12:14 Pulse Rate 85 03/23/25 12:14 Respiratory Rate 16 03/23/25 12:14 Blood Pressure 110/80 03/23/25 12:14 Pulse Oximetry 100 03/23/25 12:14 Oxygen Delivery Room Air 03/23/25 12:14 Discharge Plan Discharge Clinical Impression: Acute serous otitis media, left ear Patient Disposition: Home Condition: Stable Instructions: Antibiotic Form, Fluid In The Ear (Serous Otitis Media) (ED) Additional Instructions: Take antibiotic as prescribed until gone. Follow up with ENT specialist at scheduled appointment. Patient Language: Yakut Prescriptions: New cefdinir 300 mg capsule 300 mg PO Q12H 10 Days Qty: 20 0RF fluconazole 150 mg tablet 150 mg PO ONCE 1 Days Qty: 1 0RF No Action [place]a 24 Fe 1 mg-20 mcg (24)/75 mg (4) tablet ofloxacin 0.3 % drops 5 drp EACH EAR BID 7 Days Qty: 10 0RF propranolol 60 mg capsule,extended release 24 hr PO sumatriptan succinate 50 mg tablet PO topiramate 25 mg tablet Follow-up/Referrals: Saha,Tami Roberts APN [Primary Care Provider, Unknown] Time of Disposition: 12:43
== END 2025-03-23 12:48 | disposition home or self-care (01) ==
PROVIDERS: Emergency Provider Nurse Practitioner Family; PCP Nurse Practitioner Family
DX: H65.02 Acute serous otitis media, left ear (principal); F17.290 Nicotine dependence, other tobacco product, uncomplicated
CPT/HCPCS: 99213; G0463